=== PATIENT | male | born 1940 | race Caucasian/White ===

== ENCOUNTER → 2019-05-05 11:24 | Outpatient (CLI) | payer MEDICARE, OTHER, SELFPAY ==
--- NOTE | 2019-05-05 | DI.US.S_ITS ---
PROCEDURE: US SCROTUM INDICATIONS: SCROTAL SWELLING TECHNIQUE: Real-time scanning was performed of the scrotum and testicles, with image documentation. Color and pulse Doppler interrogation was performed of both testicles. COMPARISON: None. FINDINGS: Right: Testicle is normal in size at 4.9 x 1.8 x 2.8 cm, and homogenous in echotexture. Epididymis is normal in overall size and morphology. No hydrocele or varicoceles. Overlying scrotal skin is normal in thickness. Left: Testicle is normal in size at 4.7 x 2.1 x 3.6 cm, and homogeneous in echotexture. Epididymis is heterogeneous in appearance. Epididymal cyst is noted measuring 12 x 9 x 11 mm. Hydrocele and varicocele are noted. Overlying scrotal skin is normal in thickness. Doppler: Color and pulse Doppler demonstrate normal and symmetric arterial flow in both testicles. IMPRESSION: 1. Left hydrocele and varicocele. 2. Left epididymal cyst. Dictated by: Ana Li M.D. on 05/05/2019 at 13:54 Approved by: Ana Li M.D. on 05/05/2019 at 13:57
== END ==
PROVIDERS: PCP Family Medicine; Visit Provider Urology
DX: N50.89 Other specified disorders of the male genital organs (principal); N43.3 Hydrocele, unspecified; I86.1 Scrotal varices; N50.3 Cyst of epididymis
CPT/HCPCS: 76870

== ENCOUNTER → 2022-03-23 12:23 | Outpatient (CLI) | payer MEDICARE, OTHER, SELFPAY ==
--- NOTE | 2022-03-23 12:25 | DI.US.S_ITS ---
PROCEDURE: US ABDOMEN LIMITED INDICATIONS: ABDOMINAL PAIN, please evaluate for GALLSTONES TECHNIQUE: Real-time focused scanning was performed of the abdomen, with image documentation. COMPARISON: [facility], RG, CT ABDOMEN/PELVIS WITHOUT CONTRAST, 08/10/2019, 9:54. FINDINGS: The liver demonstrates enlarged size. The liver demonstrates generalized moderately increased echogenicity. This decreases ultrasound sensitivity for detection of hepatic masses. The main portal vein demonstrates normal size and demonstrates normal appearing, hepatopetal flow. No findings of gallstones or sludge are seen. The gallbladder wall is not thickened, measuring 3 mm or less. No specific pericholecystic fluid is seen. The sonographic Maya sign is negative. There is borderline biliary dilatation, the common bile duct measures 8 mm. No significant pancreatic abnormality is seen on these images. IMPRESSION: The gallbladder demonstrates a normal sonographic appearance. Borderline biliary dilatation is seen, with the common bile duct measuring up to 8 mm, with the upper limits of normal considered to be 7 mm. Enlarged, fatty liver. Dictated by: Sidney Hill M.D. on 03/23/2022 at 13:14 Approved by: Sidney Hill M.D. on 03/23/2022 at 13:16
== END ==
PROVIDERS: PCP Family Medicine; Referring Provider Surgery; Visit Provider Surgery
DX: R10.9 Unspecified abdominal pain (principal); K76.0 Fatty (change of) liver, not elsewhere classified
CPT/HCPCS: 76705

== ENCOUNTER → 2022-04-19 13:03 | Outpatient (CLI) | payer MEDICARE, OTHER, SELFPAY ==
[2022-04-19 14:54] LABS: COVID19 -Nasal RAPID Negative (Negative)
== END ==
PROVIDERS: PCP Family Medicine; Visit Provider Surgery
DX: Z20.822 Contact with and (suspected) exposure to COVID-19 (principal); Z01.812 Encounter for preprocedural laboratory examination
CPT/HCPCS: 87635; C9803

== ENCOUNTER 2022-04-20 15:02 | Day surgery (SDC) | payer MEDICARE, OTHER, SELFPAY ==
--- NOTE | 2022-04-20 | PATH_ITS ---
[facility] Accession Number: [id number] . 01 Material submitted: . PART A: stomach - ANTRUM BIOPSY PART B: cardia - CARDIA BIOPSY PART C: esophagus, E-G Junction - GE JUNCTION BIOPSY . 01 Clinical history: . SDC UNSPECIFIED ABDOMINAL PAIN . 01 Diagnosis: A. Stomach, Antrum, Biopsy: Antral mucosa with mild chronic gastritis. No evidence of Helicobacter on H/E stain. Negative for intestinal metaplasia. Negative for dysplasia and malignancy. . B. Stomach, Cardia, Biopsy: Cardio oxyntic mucosa with mild chronic inflammation. No evidence of Helicobacter on H/E stain. Negative for intestinal metaplasia. Negative for dysplasia and malignancy. . C. Gastroesophageal Junction, Biopsy: Squamocolumnar junctional mucosa with specialized intestinal metaplasia, consistent with Garcia's esophagus. Negative for dysplasia and malignancy. MRV 04/26/2022 1351 Local . 01 Electronically signed: . Lynn Masterson MD, Pathologist NPI- [id number] . 01 Gross description: . Part A: ANTRUM BIOPSY: Received in formalin is 1 fragment(s) of larsen, soft tissue measuring 0.3 x 0.3 x 0.2 cm submitted entirely in 1 cassette(s) Part B: CARDIA BIOPSY: Received in formalin are 2 fragment(s) of larsen, soft tissue measuring 0.3 x 0.1 x 0.1 cm to 0.1 x 0.1 x 0.1 cm submitted entirely in 1 cassette(s) Part C: GE JUNCTION BIOPSY: Received in formalin are multiple fragment(s) of larsen, soft tissue measuring 0.8 x 0.4 x 0.1 cm in aggregate submitted entirely in 1 cassette(s) /CPE 04/21/2022 0618 Local . 01 Pathologist provided ICD-10: K22.70 . 01 CPT . 491155, 501666, 710698 Specimen Comment: A courtesy copy of this report has been sent to [phone] Performed at: [address] [address], [place], [place] [id number] MD Niranjan Villar MD Phone: [phone]
[2022-04-20 15:22] VITALS: BP 135/92; PULSE 92; RESP 18; TEMP 35.8; O2SAT 96; BMI 30.7
[2022-04-20] MEDS: LACTATED RINGERS 1,000 ML 42 ML IV (15:30)
--- NOTE | 2022-04-20 17:15 | P.HP_ITS ---
History of Present Illness History of Present Illness Date Patient Seen: 04/20/22 Time Patient Seen: 17:15 Chief complaint: [facility] [place]ative: Scar is here for his EGD today. See prior office note for details. He had his ultrasound which showed no gallstones. He continues to have abdominal pain but is better now. Mostly it is postprandial. Patient History Surgical History (Updated 02/10/22 @ 14:25 by Imani Ramires RN) H/O hernia repair Family & Social History Social History: household members none lives independently Yes Tobacco & Substance use: Smoking Status Never smoker alcohol intake never Substance Use Type does not use Meds Home Medications and Allergies Home Medications Medication Instructions Recorded Confirmed Type lisinopril 10 mg tablet 10 mg PO QDAY ##0 09/28/16 04/20/22 History simvastatin 40 mg tablet 40 mg PO QPM ##0 09/28/16 04/20/22 History aspirin 81 mg tablet,delayed 81 mg PO DAILY 09/17/19 04/20/22 History release cholecalciferol (vitamin D3) 25 1,000 unit PO DAILY 09/17/19 04/20/22 History mcg (1,000 unit) capsule multivitamin 1 cap PO DAILY 09/17/19 02/10/22 History Saccharomyces boulardii 250 mg 250 mg PO DAILY 02/10/22 02/10/22 History capsule (Daily Probiotic (S. boulardii)) magnesium oxide 500 mg tablet 500 mg PO DAILY 02/10/22 02/10/22 History potassium gluconate 595 mg (99 mg) 595 mg PO DAILY 02/10/22 02/10/22 History tablet Allergies Allergy/AdvReac Type Severity Reaction Status Date / Time No Known Drug Allergies Allergy Verified 04/20/22 15:28 Exam Vital Signs (past 8 hours): - 04/20/22 15:22 Temperature 96.5 F L Pulse Rate 92 H Respiratory Rate 18 Blood Pressure 135/92 H Pulse Oximetry 96 Oxygen Delivery Method Room Air Oxygen Delivery Method Room Air Narrative Exam Narrative: Abdomen is protuberant and soft Assessment & Plan Assessment and plan (1) Abdominal pain: Qualifiers: Abdominal location: unspecified location Qualified Code(s): R10.9 - Unspecified abdominal pain Status: Acute Plan We reviewed the risks and benefits of EGD and he would like to proceed. Time Spent With Patient Critical Care time: I spent a total of [] minutes of critical care time on this patient's care to day; this time is exclusive of procedural time.
[2022-04-20] MEDS: LIDOCAINE 4% SOLN 50 ML 20 ML TOP (17:20)
[2022-04-20] MEDS: fentaNYL 250 MCG/5 ML INJ 50 MCG IV (17:23)
[2022-04-20] MEDS: MIDAZOLAM 5 MG/5 ML VIAL IV (17:28)
--- NOTE | 2022-04-20 17:37 | PM.OP.EGD ---
Operative Date/Time/Diagnoses Date of procedure: 04/20/22 Time of procedure: 17:37 Pre-op diagnosis: Dyspepsia Post-op diagnosis: same Procedure & Clinicians Study performed: Esophagogastroduodenoscopy Same procedure as scheduled: Yes Surgeon: Man Scott Procedure Notes Procedure in detail: Surgeon: Man Scott MD A timeout was performed. Topical lidocaine was administered to the posterior oropharynx. A bite blocked was placed. The patient was positioned in the left lateral decubitus position. Sedation was administered with Versed and fentanyl. The endoscope was inserted through the bite block and passed through the esophagus and stomach and into the duodenum. The duodenal mucosa appeared normal. The scope was withdrawn into the duodenal bulb and no abnormalities were seen. The scope was withdrawn into the stomach. Random biopsies taken from antrum with forceps. There were no ulcers. The rest of the stomach was normal. The scope was retroflexed and there was some prominent mucosa around the gastric cardia which was biopsied with forceps.. The scope was withdrawn into the esophagus and some salmon colored patches of mucosa were seen at the GE junction. Biopsies were taken from this tissue in multiple different quadrants. The remainder of the esophagus was normal. The scope was withdrawn. The patient was awakened and brought to recovery. Sedation time: 12 Versed: 5 Fentanyl: 50 Findings: Prominent mucosa at the gastric cardia and patches of salmon-colored mucosa at the distal GE junction. Sedation minutes: 12 Post-procedure Disposition: PACU
[2022-04-20 17:46] VITALS: BP 121/79; PULSE 93; RESP 19; TEMP 36.8; O2SAT 92
[2022-04-20 17:51] VITALS: BP 115/71; PULSE 87; RESP 17; O2SAT 93
[2022-04-20 17:56] VITALS: BP 106/78; PULSE 78; RESP 17; TEMP 36.8; O2SAT 93
[2022-04-20 18:01] VITALS: BP 125/70; PULSE 76; RESP 16; O2SAT 96
[2022-04-20 18:09] VITALS: BP 131/69; PULSE 89; RESP 16; O2SAT 97
--- NOTE | 2022-04-20 18:36 | SUR.PHASEII ---
Discharge instructions reviewed with patient. Pt denies any distress and ready to discharge home. This database report writer assisted pt with dressing and using the bathroom, was moderately unstable on feet and reports this is how I always am. IV DC'd intact, dressing applied. Transported patient to ER exit to meet son and explained to him that someone needs to be with patient as high risk of falls, son also said that is normal for patient, however would stay with patient to ensure safety.
== END 2022-04-20 18:30 | disposition home or self-care (01) ==
PROVIDERS: PCP Family Medicine; Referring Provider Surgery; Visit Provider Surgery
PROC: 0DJ08ZZ Inspection of Upper Intestinal Tract, Via Natural or Artificial Opening Endoscopic (ICD-10-PCS; CPT 43235; principal; 2022-04-20 16:15)
DX: K29.50 Unspecified chronic gastritis without bleeding (principal); K22.70 Barrett's esophagus without dysplasia
CPT/HCPCS: 43239; 99152; J2250; J3010

== ENCOUNTER → 2023-10-30 08:44 | Outpatient (CLI) | payer MEDICARE, OTHER, SELFPAY ==
--- NOTE | 2023-10-30 08:48 | DI.US.S_ITS ---
PROCEDURE: US CAROTID DOPPLER BI INDICATIONS: SYNCOPE TECHNIQUE: Color and pulse Doppler interrogation was performed of both carotid systems, with image documentation and velocity measurements. COMPARISON: [facility], , CAROTID ARTERY DOPPLER BILAT, 12/22/2013, 10:50. FINDINGS: Stenosis calculations are based on SRU (Society of Radiologists in Ultrasound) criteria. Right side: Brachial blood pressure: 116/69 mm Hg. Common carotid artery peak systolic velocity: 48 cm/sec. Internal carotid artery peak systolic velocity: 49 cm/sec. Internal carotid artery end diastolic velocity: 15 cm/sec. External carotid artery peak systolic velocity: 60 cm/sec. ICA/CCA peak systolic ratio: 1.1 . Ellison scale imaging description: No visualized plaque Percent internal carotid artery stenosis: No hemodynamically significant stenosis . Vertebral artery: Flow direction is antegrade. Left side: Brachial blood pressure: 133/74 mm Hg. Common carotid artery peak systolic velocity: 73 cm/sec. Internal carotid artery peak systolic velocity: 54 cm/sec. Internal carotid artery end diastolic velocity: 16 cm/sec. External carotid artery peak systolic velocity: 95 cm/sec. ICA/CCA peak systolic ratio: 0.7 . Ellison scale imaging description: No visualized plaque Percent internal carotid artery stenosis: No hemodynamically significant stenosis. . Vertebral artery: Flow direction is antegrade. IMPRESSION: No hemodynamically significant stenosis. Dictated by: Ana Li M.D. on 10/30/2023 at 10:02 Approved by: Ana Li M.D. on 10/30/2023 at 10:04
--- NOTE | 2023-10-30 08:49 | DI.CT.S_ITS ---
PROCEDURE: CT HEAD/BRAIN WO CON INDICATIONS: Dizziness and giddiness/syncope TECHNIQUE: Noncontrast 4.5 mm thick angled axial sections acquired from the foramen magnum to the vertex, with coronal and sagittal reformats. For radiation dose reduction, the following was used: automated exposure control, adjustment of mA and/or kV according to patient size. COMPARISON: [facility], CT, HEAD WITHOUT CONTRAST, 12/22/2013, 10:27. FINDINGS: Image quality: Diagnostic. CSF spaces: Basal cisterns are patent. No extra-axial fluid collections. The ventricles are symmetric in size and shape. Brain: No intracranial bleeds or masses. There is cerebral volume loss for age, with resultant ventricular and sulcal prominence. There are periventricular and deep white matter chronic small vessel ischemic changes. There is intracranial internal carotid artery atherosclerosis. Skull and face: Calvarium and visualized facial bones appear intact, without suspicious lesions. Sinuses: Visualized sinuses and mastoids are clear. IMPRESSION: 1. No acute intracranial process. 2. Mild to moderate atrophy and chronic microvascular ischemic changes. Dictated by: Ana Li M.D. on 10/30/2023 at 9:52 Approved by: Ana Li M.D. on 10/30/2023 at 9:53
--- NOTE | 2023-10-30 08:50 | DI.RAD.S_ITS ---
PROCEDURE: XR KNEE LT 3V INDICATIONS: Dizziness and giddiness/syncope TECHNIQUE: 3 views of the knee were acquired. COMPARISON: None. FINDINGS: Bones: No fractures or dislocations. No suspicious bony lesions. Moderate tricompartmental osteoarthritis. Soft tissues: No joint effusion. No suspicious soft tissue calcifications. IMPRESSION: 1. No acute bony abnormality or significant effusion. 2. Moderate osteoarthritis. 3. Small knee joint effusion. Dictated by: Champ Casanova M.D. on 10/30/2023 at 11:15 Approved by: Champ Casanova M.D. on 10/30/2023 at 11:24
--- NOTE | 2023-10-30 08:50 | DI.RAD.S_ITS ---
PROCEDURE: XR KNEE RT 3V INDICATIONS: Dizziness and giddiness/syncope TECHNIQUE: 3 views of the knee were acquired. COMPARISON: None. FINDINGS: Bones: No fractures or dislocations. No suspicious bony lesions. Moderate tricompartmental osteoarthritis. Soft tissues: Trace joint effusion. No suspicious soft tissue calcifications. IMPRESSION: 1. No acute bony abnormality or significant effusion. 2. Osteoarthritis. 3. Trace knee joint effusion. Dictated by: Champ Casanova M.D. on 10/30/2023 at 11:24 Approved by: Champ Casanova M.D. on 10/30/2023 at 11:29
== END ==
PROVIDERS: PCP Family Medicine; Referring Provider Family Medicine; Visit Provider Family Medicine
DX: R42 Dizziness and giddiness (principal); M17.0 Bilateral primary osteoarthritis of knee; M25.462 Effusion, left knee; M25.569 Pain in unspecified knee
CPT/HCPCS: 70450; 73562; 93880

== ENCOUNTER → 2025-07-21 19:34 | Outpatient (CLI) | payer MEDICARE, OTHER, SELFPAY ==
--- NOTE | 2025-07-21 19:38 | DI.MRI.S_ITS ---
PROCEDURE: MR THORACIC SPINE WO CON INDICATIONS: Gait instability TECHNIQUE: Noncontrast sagittal T1 spine echo and T2 fast spin echo, sagittal STIR, and T2 fast spin echo through the thoracic spine. COMPARISON: [facility], RG, CT ABDOMEN/PELVIS WITHOUT CONTRAST, 08/10/2019, 9:54. FINDINGS: Image quality: Excellent. Alignment and Curvature: There is normal bony alignment. Bone Marrow: Marrow is of normal overall signal. No acute vertebral body compression fractures. Spinal Cord: Visualized spinal cord is normal in size and signal. Paraspinous Soft Tissues: Right adrenal nodule measuring 2.5 centimeters. Miscellaneous: Multilevel disc desiccation and mild height loss. No central canal stenosis. Facet arthropathy resulting in areas of mild neural foraminal stenosis in the lower thoracic spine. No high-grade stenosis. IMPRESSION: Mild degenerative changes of the thoracic spine as described above. No high- grade stenosis. Stable right adrenal nodule measuring up to 2.5 centimeters compared to 2019. Dictated by: Jesus Kebede M.D. on 07/22/2025 at 9:11 Approved by: Jesus Kebede M.D. on 07/22/2025 at 9:15
== END ==
LOC: MRI 19:35
PROVIDERS: PCP Family Medicine; Referring Provider Physician Assistant; Visit Provider Physician Assistant
DX: M47.814 Spondylosis without myelopathy or radiculopathy, thoracic region (principal); M47.22 Other spondylosis with radiculopathy, cervical region; M54.2 Cervicalgia; M62.838 Other muscle spasm; R20.2 Paresthesia of skin; R42 Dizziness and giddiness; R26.81 Unsteadiness on feet; E27.9 Disorder of adrenal gland, unspecified
CPT/HCPCS: 72146